=== PATIENT | male | born 1995 | race Caucasian/White ===

== ENCOUNTER 2021-09-14 12:29 | Emergency (ER) | payer SELFPAY ==
[2021-09-14] MEDS ORDERED: TETRACAINE HCL 0.5% 4ML OPTH ONE (13:27)
[2021-09-14] MEDS ORDERED: FLUORESCEIN SODIUM 1 MG/WRAP ONE (13:27)
--- NOTE | 2021-09-14 14:23 | EDPHYS ---
Physician Documentation [facility] Name: Silvano Cervantes Age: 25 yrs Sex: Male : 1995 Arrival Date: 09/14/2021 Time: 12:30 Bed 10 Private MD: ED Physician Surendra Diaz HPI: 09/14 12:50 This 25 yrs old Male presents to ER via Ambulatory with complaints of Foreign Body In jmm Eye. 12:50 Onset: The symptoms/episode began/occurred 1 day(s) ago. Duration: the symptoms are jmm continuous. Aggravated by nothing. Alleviated by nothing. This is a 25-year-old male no chronic medical conditions presents emerged part with complaints of right eye pain. Patient states that while working in a barn and cutting into a wood/fiberglass remove, patient felt a foreign body sensation. Patient states he was wearing protective googles. . Historical: - Allergies: 12:46 No Known Allergies; ab2 - PMHx: 12:46 None; ab2 - PSHx: 12:46 None; ab2 - Immunization history:: Adult Immunizations up to date. - Social history:: Smoking status: Patient reports use of chewing tobacco. ROS: 12:50 Constitutional: Negative for fever, chills, and weight loss. jmm 12:50 Eyes: Positive for pain. 12:50 All other systems are negative. Exam: 12:50 Constitutional: This is a well developed, well nourished patient who is awake, alert, jmm and in no acute distress. Head/Face: atraumatic. 12:50 ENT: Moist Mucus Membranes Neck: Trachea midline, Supple Chest/axilla: Normal chest wall appearance and motion. Cardiovascular: Regular rate and rhythm. No edema appreciated Respiratory: Normal respirations, no respiratory distress appreciated Abdomen/GI: Non distended, soft Back: Normal ROM Skin: General appearance color normal 12:50 Eyes: Extraocular movements: intact throughout, Conjunctiva: Sclera: abrasion, of the medial aspect of conjunctiva of right eye and lateral aspect of conjunctiva of right eye 12:50 Musculoskeletal/extremity: ROM: intact in all extremities. 12:50 Skin: Appearance: Color: normal in color. 12:50 Neuro: Orientation: is normal, Mentation: is normal, Memory: is normal. 12:50 Psych: Behavior/mood is pleasant, cooperative. Vital Signs: 12:44 BP 132 / 89; Pulse 77; Resp 17; Temp 98.8; Pulse Ox 100% ; Weight 90.72 kg; Height 6 ab2 ft. 7 in. (200.66 cm); Pain 7/10; 12:44 Body Mass Index 22.53 (90.72 kg, 200.66 cm) ab2 Visual Acuity: 14:09 Left Eye Visual acuity 20/13, ; Right Eye Visual acuity 20/30, ; Both Eyes Visual dh3 acuity 20/13; Without Lenses; MDM: 12:57 Patient medically screened. [facility] 14:22 Data reviewed: vital signs, nurses notes. Counseling: I had a detailed discussion with [facility] the patient and/or guardian regarding: the historical points, exam findings, and any diagnostic results supporting the discharge/admit diagnosis, the need for outpatient follow up, to return to the emergency department if symptoms worsen or persist or if there are any questions or concerns that arise at home. 09/14 12:50 Order name: Visual Acuity; Complete Time: 14:08 [facility] Administered Medications: 14:02 Drug: Tetracaine Drops 0.5 % 1 drops {Note: admin by PA. Alex} Route: Ophthalmic; ss Site: right eye; 14:02 Drug: Fluorescein Strip 1 mg 1 application {Note: admin by MARIOLA Johnson.} Route: ss Ophthalmic; Site: right eye; Disposition: 17:12 Co-signature as Attending Physician, Surendra Diaz MD I agree with the assessment and kdr plan of care. Disposition Summary: 09/14/21 14:23 Discharge Ordered Location: Home [facility] Condition: Stable [facility] Diagnosis - Right Eye Pain - Scleral Abrasion [facility] Followup: [facility] - With: Valeriy Catalan MD - When: 2 - 3 days - Reason: Recheck today's complaints, Continuance of care, Re-evaluation by your physician Discharge Instructions: - Discharge Summary Sheet [facility] - Corneal Abrasion [facility] Forms: - Medication Reconciliation Form [facility] - Thank You Letter [facility] - Antibiotic Education [facility] - Prescription Opioid Use [facility] - Work release form ab2 Prescriptions: - Erythromycin 5 mg/gram (0.5 %) Ophthalmic Ointment - apply 1 centimeter by OPHTHALMIC route 2-3 times daily for 7 days; 1 tube; [facility] Refills: 0, Product Selection Permitted Signatures: Surendra Diaz MD MD kdr Mickail, Joel, PA PA jmm Smirch, Shelby, RN RN ss Chilo Jordan
--- NOTE | 2021-09-14 14:23 | ER ---
Nurse's Notes [facility] Name: Silvano Cervantes Age: 25 yrs Sex: Male : 1995 Arrival Date: 09/14/2021 Time: 12:30 Bed 10 Private MD: Diagnosis: Right Eye Pain - Scleral Abrasion Presentation: 09/14 12:44 Chief complaint: Patient states: "Last night around 5pm I was working and fiberglass or ab2 wood fell in between my safety glasses and got into my right eye. It itches, ward and keeps watering.". Coronavirus screen: Vaccine status: Patient reports receiving the 2nd dose of the covid vaccine. Client denies travel out of the [place] in the last 14 days. At this time, the client does not indicate any symptoms associated with coronavirus-19. Ebola Screen: Patient negative for fever greater than or equal to 101.5 degrees Fahrenheit, and additional compatible Ebola Virus Disease symptoms Patient denies exposure to infectious person. Patient denies travel to an Ebola-affected area in the 21 days before illness onset. No symptoms or risks identified at this time. Initial Sepsis Screen: Does the patient meet any 2 criteria? No. Patient's initial sepsis screen is negative. Does the patient have a suspected source of infection? No. Patient's initial sepsis screen is negative. Risk Assessment: Do you want to hurt yourself or someone else? Patient reports no desire to harm self or others. Onset of symptoms is unknown. 12:44 Method Of Arrival: Ambulatory ab2 12:44 Acuity: LUIZ 4 ab2 Triage Assessment: 12:46 General: Appears in no apparent distress. uncomfortable, Behavior is calm, cooperative, ab2 appropriate for age. Pain: Complains of pain in right eye. EENT: Reports blurred vision pain in right eye. Neuro: Level of Consciousness is awake, alert, obeys commands, Oriented to person, place, time, situation, Appropriate for age Physician Neonatology are equal bilaterally Moves all extremities. Gait is steady, Speech is normal. Cardiovascular: No deficits noted. Denies chest pain, shortness of breath. Respiratory: No deficits noted. Airway is patent Respiratory effort is even, unlabored, Respiratory pattern is regular, symmetrical. GI: No deficits noted. No signs and/or symptoms were reported involving the gastrointestinal system. Historical: - Allergies: 12:46 No Known Allergies; ab2 - PMHx: 12:46 None; ab2 - PSHx: 12:46 None; ab2 - Immunization history:: Adult Immunizations up to date. - Social history:: Smoking status: Patient reports use of chewing tobacco. Screenin:01 Abuse screen: Denies threats or abuse. Denies injuries from another. Nutritional ss screening: No deficits noted. Tuberculosis screening: Never had TB. Fall Risk None identified. Assessment: 13:01 General: Appears uncomfortable, Behavior is calm, cooperative. Pain: Complains of pain ss in right eye Pain currently is 7 out of 10 on a pain scale. Neuro: Level of Consciousness is awake, alert, obeys commands, Oriented to person, place, time, situation, Speech is normal. Cardiovascular: Capillary refill < 3 seconds is brisk in bilateral fingers. Respiratory: Airway is patent Respiratory effort is even, unlabored, Respiratory pattern is regular, symmetrical. EENT: Nares are clear Oral mucosa is moist. EENT: Sclera/Cornea are reddened in outer aspect of conjuctiva of right eye and inner aspect of conjuctiva of right eye. Derm: Skin is pink, warm \\T\\ dry. normal. 14:33 Reassessment: Patient appears in no apparent distress at this time. Patient and/or ss family updated on plan of care and expected duration. Pain level reassessed. Patient is alert, oriented x 3, equal unlabored respirations, skin warm/dry/pink. Vital Signs: 12:44 BP 132 / 89; Pulse 77; Resp 17; Temp 98.8; Pulse Ox 100% ; Weight 90.72 kg; Height 6 ab2 ft. 7 in. (200.66 cm); Pain 7/10; 12:44 Body Mass Index 22.53 (90.72 kg, 200.66 cm) ab2 Visual Acuity: 14:09 Left Eye Visual acuity 20/13, ; Right Eye Visual acuity 20/30, ; Both Eyes Visual dh3 acuity 20/13; Without Lenses; ED Course: 12:30 Patient arrived in ED. am2 12:46 Triage completed. ab2 12:46 Arm band placed on right wrist. ab2 12:49 Alex Qu[facility]ones [facility] 12:49 Surendra Diaz MD is Attending Physician. [facility] 13:01 Patient has correct armband on for positive identification. Bed in low position. Call light in reach. 13:22 Fartun Alvarez, RN is Primary Nurse. 14:22 Valeriy Catalan MD is Referral Physician. [facility] 14:32 Assist provider with eye exam of right eye. using fluorescein stain, Performed by Alex YIP Patient tolerated well. Patient did not have IV access during this emergency room visit. Administered Medications: 14:02 Drug: Tetracaine Drops 0.5 % 1 drops {Note: admin by THEODORA Johnson.} Route: Ophthalmic; Site: right eye; 14:02 Drug: Fluorescein Strip 1 mg 1 application {Note: admin by MARIOLA Johnson.} Route: ss Ophthalmic; Site: right eye; Outcome: 14:23 Discharge ordered by . [facility] 14:32 Discharged to home ambulatory. 14:32 Condition: good 14:32 Discharge instructions given to patient, Instructed on discharge instructions, follow up and referral plans. Demonstrated understanding of instructions, follow-up care, Prescriptions given X 1. 14:33 Patient left the ED. Signatures: Alex Quiñones PA PA jmm Smirch, Shelby, RN RN Rachel Goel 2 Zuleika Fuller 3 Chilo Jordan2
[2021-09-14 17:38] VITALS: BP 132/89; TEMP 98.8; O2SAT 100
== END 2021-09-14 14:33 | disposition home or self-care (01) ==
LOC: ER 12:29
DX: S05.01XA Injury of conjunctiva and corneal abrasion without foreign body, right eye, initial encounter (principal); F17.220 Nicotine dependence, chewing tobacco, uncomplicated
CPT/HCPCS: 99283